=== PATIENT | male | born 1995 | race Caucasian/White ===

== ENCOUNTER 2024-05-18 02:37 | Outpatient (RCR) | payer BC, SELFPAY ==
[2024-05-04] MEDS: Normal Saline Flush 10 ML SYR IVP (08:45)
[2024-05-04 09:02] LABS: Abs Immature Grans 0.46 10^3/uL (0.0-0.06); Absolute Basophil Count 0.08 10^3/uL (0.0-0.2); Absolute Eosinophil Count 0.13 10^3/uL (0.0-0.7); Absolute Lymphocyte Count 2.59 10^3/uL (1.2-3.4); Absolute Monocyte Count 2.12 10^3/uL (0.1-0.8); Basophils % 0.3 %; Eosinophils % 0.5 %; HCT 42.8 % (40.0-50.0); HGB 13.5 g/dL (13.5-17.5); Immature Grans % 1.8 %; MCH 27.1 pg (27.0-33.0); MCHC 31.5 % (32.0-36.0); MCV 86 fL (80-95); Monocytes % 8.2 %; Neutrophils % 79.2 %; Platelet Count 376 10^3/uL (130-400); RBC 4.98 10^6/uL (4.36-5.78); RDW 13.7 % (11.8-14.1); RDW-SD 41.9 fL
[2024-05-04 09:04] LABS: Absolute Neutrophil Count 20.51 10^3/uL (1.2-6.7)
[2024-05-04 09:09] LABS: ESR 83 mm/hr (0-15)
[2024-05-04 09:33] LABS: Diff Comment Diff Reviewed; RBC Morphology Normal
[2024-05-04 10:39] LABS: ALT 33 U/L (16-63); AST 12 U/L (15-37); Albumin 2.6 g/dL (3.4-5.0); Alkaline Phosphatase 167 U/L (46-116); Anion Gap 8.1 mmol/L (3-11); BUN 12 mg/dL (7-18); Bilirubin, Total 1.45 mg/dL (0.2-1.0); CO2 27.9 mmol/L (21.0-32.0); CREATININE 1.1 mg/dL (0.70-1.30); Calcium 8.9 mg/dL (8.5-10.1); Chloride 99 mmol/L (98-107); Estimated GFR 93.77 (mL/min/1.73m2); Glucose 147 mg/dL (74-106); Potassium 4.2 mmol/L (3.5-5.1); Sodium 135 mmol/L (136-145); Total Protein 7.5 g/dL (6.4-8.2)
[2024-05-11] MEDS: Normal Saline Flush 10 ML SYR IVP (09:32)
[2024-05-11 10:01] LABS: Abs Immature Grans 0.05 10^3/uL (0.0-0.06); Absolute Basophil Count 0.04 10^3/uL (0.0-0.2); Absolute Eosinophil Count 0.15 10^3/uL (0.0-0.7); Absolute Lymphocyte Count 1.93 10^3/uL (1.2-3.4); Absolute Monocyte Count 0.09 10^3/uL (0.1-0.8); Absolute Neutrophil Count 3.06 10^3/uL (1.2-6.7); Basophils % 0.8 %; Eosinophils % 2.8 %; HCT 39.9 % (40.0-50.0); HGB 12.3 g/dL (13.5-17.5); Immature Grans % 0.9 %; Lymphocytes % 36.3 %; MCH 26.9 pg (27.0-33.0); MCHC 30.8 % (32.0-36.0); MCV 87 fL (80-95); MPV 8.9 fL (8.0-11.0); Monocytes % 1.7 %; Neutrophils % 57.5 %; Platelet Count 290 10^3/uL (130-400); RBC 4.58 10^6/uL (4.36-5.78); RDW 13.1 % (11.8-14.1); RDW-SD 41.1 fL; WBC 5.32 10^3/uL (4.4-10.8)
[2024-05-11 10:06] LABS: ESR 31 mm/hr (0-15)
[2024-05-11 10:34] LABS: ALT 37 U/L (16-63); AST 15 U/L (15-37); Albumin 2.9 g/dL (3.4-5.0); Alkaline Phosphatase 130 U/L (46-116); BUN 7 mg/dL (7-18); Bilirubin, Total 0.3 mg/dL (0.2-1.0); CREATININE 0.7 mg/dL (0.70-1.30); Calcium 8.6 mg/dL (8.5-10.1); Chloride 105 mmol/L (98-107); Estimated GFR 128.71 (mL/min/1.73m2); Glucose 90 mg/dL (74-106); Potassium 4.2 mmol/L (3.5-5.1); Sodium 140 mmol/L (136-145); TSH 0.78 uIU/mL (0.36-3.74); Total Protein 6.8 g/dL (6.4-8.2)
[2024-05-18] MEDS: Normal Saline Flush 10 ML SYR IVP (08:20)
[2024-05-18 08:35] LABS: Absolute Basophil Count 0.07 10^3/uL (0.0-0.2); Absolute Eosinophil Count 0.16 10^3/uL (0.0-0.7); Absolute Lymphocyte Count 1.68 10^3/uL (1.2-3.4); Absolute Monocyte Count 0.45 10^3/uL (0.1-0.8); Basophils % 2.5 %; Eosinophils % 5.8 %; HCT 41.4 % (40.0-50.0); HGB 13.1 g/dL (13.5-17.5); Lymphocytes % 60.6 %; MCH 27.3 pg (27.0-33.0); MCHC 31.6 % (32.0-36.0); MCV 86 fL (80-95); MPV 8.8 fL (8.0-11.0); Monocytes % 16.2 %; Neutrophils % 14.9 %; Platelet Count 309 10^3/uL (130-400); RDW 15.3 % (11.8-14.1); WBC 2.77 10^3/uL (4.4-10.8)
[2024-05-18 08:38] LABS: ESR 28 mm/hr (0-15)
[2024-05-18 08:49] LABS: Diff Comment Diff Reviewed
[2024-05-18 08:50] LABS: Stomatocytes 2+
[2024-05-18 08:52] LABS: Absolute Neutrophil Count 0.41 10^3/uL (1.2-6.7)
[2024-05-18 09:02] LABS: ALT 38 U/L (16-63); AST 23 U/L (15-37); Alkaline Phosphatase 132 U/L (46-116); Anion Gap 6.1 mmol/L (3-11); BUN 8 mg/dL (7-18); Bilirubin, Total 0.4 mg/dL (0.2-1.0); CO2 29.9 mmol/L (21.0-32.0); CREATININE 0.7 mg/dL (0.70-1.30); Calcium 8.8 mg/dL (8.5-10.1); Chloride 106 mmol/L (98-107); Estimated GFR 127.91 (mL/min/1.73m2); Glucose 115 mg/dL (74-106); Potassium 4.1 mmol/L (3.5-5.1); Sodium 142 mmol/L (136-145); Total Protein 6.9 g/dL (6.4-8.2)
== END 2024-05-30 23:59 | disposition home or self-care (01) ==
LOC: INF 02:37
PROVIDERS: Visit Provider Internal Medicine Hematology & Oncology
DX: R53.83 Other fatigue (principal); R59.9 Enlarged lymph nodes, unspecified
CPT/HCPCS: 36591; 80053; 85652; 84443; 85025

== ENCOUNTER 2024-06-29 01:20 | Outpatient (RCR) | payer BC, SELFPAY ==
[2024-06-01] MEDS: Normal Saline Flush 10 ML SYR IVP (08:35)
[2024-06-01 08:49] LABS: Abs Immature Grans 0.79 10^3/uL (0.0-0.06); HCT 42.2 % (40.0-50.0); HGB 13.6 g/dL (13.5-17.5); MCH 27.9 pg (27.0-33.0); MCHC 32.2 % (32.0-36.0); MCV 87 fL (80-95); MPV 9.2 fL (8.0-11.0); Platelet Count 276 10^3/uL (130-400); RBC 4.88 10^6/uL (4.36-5.78); RDW-SD 51.9 fL; WBC 11.04 10^3/uL (4.4-10.8)
[2024-06-01 08:54] LABS: ESR 22 mm/hr (0-15)
[2024-06-01 09:07] LABS: Absolute Eosinophil Count 0.11 10^3/uL (0.0-0.7); Absolute Lymphocyte Count 2.87 10^3/uL (1.2-3.4); Absolute Monocyte Count 0.99 10^3/uL (0.1-0.8); Absolute Neutrophil Count 6.62 10^3/uL (1.2-6.7); Bands % 4 %; Myelocytes % 4
[2024-06-01 09:08] LABS: Diff Comment Diff Reviewed; RBC Morphology Normal
[2024-06-01 09:17] LABS: ALT 34 U/L (16-63); AST 16 U/L (15-37); Albumin 3.3 g/dL (3.4-5.0); Alkaline Phosphatase 149 U/L (46-116); Anion Gap 8.9 mmol/L (3-11); BUN 8 mg/dL (7-18); Bilirubin, Total 0.2 mg/dL (0.2-1.0); CO2 30.1 mmol/L (21.0-32.0); CREATININE 0.7 mg/dL (0.70-1.30); Chloride 104 mmol/L (98-107); Estimated GFR 127.91 (mL/min/1.73m2); Glucose 103 mg/dL (74-106); Potassium 4.1 mmol/L (3.5-5.1); Sodium 143 mmol/L (136-145); TSH 1.15 uIU/mL (0.36-3.74)
[2024-06-15] MEDS: Normal Saline Flush 10 ML SYR IVP (08:28)
[2024-06-15 08:39] LABS: Abs Immature Grans 0.01 10^3/uL (0.0-0.06); Absolute Basophil Count 0.07 10^3/uL (0.0-0.2); Absolute Eosinophil Count 0.11 10^3/uL (0.0-0.7); Absolute Lymphocyte Count 1.61 10^3/uL (1.2-3.4); Absolute Monocyte Count 0.71 10^3/uL (0.1-0.8); Absolute Neutrophil Count 2.16 10^3/uL (1.2-6.7); Basophils % 1.5 %; Eosinophils % 2.4 %; HCT 42.1 % (40.0-50.0); HGB 13.3 g/dL (13.5-17.5); Immature Grans % 0.2 %; Lymphocytes % 34.5 %; MCH 27.7 pg (27.0-33.0); MCHC 31.6 % (32.0-36.0); MCV 88 fL (80-95); MPV 9.1 fL (8.0-11.0); Monocytes % 15.2 %; Neutrophils % 46.2 %; Platelet Count 303 10^3/uL (130-400); RDW 18.3 % (11.8-14.1); RDW-SD 57.1 fL; WBC 4.67 10^3/uL (4.4-10.8)
[2024-06-15 08:41] LABS: ESR 16 mm/hr (0-15)
[2024-06-15 09:06] LABS: ALT 37 U/L (16-63); AST 18 U/L (15-37); Albumin 3.3 g/dL (3.4-5.0); Alkaline Phosphatase 106 U/L (46-116); Anion Gap 6.1 mmol/L (3-11); BUN 9 mg/dL (7-18); Bilirubin, Total 0.3 mg/dL (0.2-1.0); CO2 29.9 mmol/L (21.0-32.0); CREATININE 0.8 mg/dL (0.70-1.30); Calcium 9.1 mg/dL (8.5-10.1); Chloride 106 mmol/L (98-107); Estimated GFR 122.86 (mL/min/1.73m2); Glucose 95 mg/dL (74-106); Potassium 4.1 mmol/L (3.5-5.1); Sodium 142 mmol/L (136-145); TSH 1.14 uIU/mL (0.36-3.74); Total Protein 6.7 g/dL (6.4-8.2)
[2024-06-29 08:36] LABS: Abs Immature Grans 0.02 10^3/uL (0.0-0.06); Absolute Basophil Count 0.11 10^3/uL (0.0-0.2); Absolute Eosinophil Count 0.15 10^3/uL (0.0-0.7); Absolute Lymphocyte Count 1.97 10^3/uL (1.2-3.4); Absolute Monocyte Count 0.74 10^3/uL (0.1-0.8); Absolute Neutrophil Count 3.02 10^3/uL (1.2-6.7); Basophils % 1.8 %; Eosinophils % 2.5 %; HCT 44.6 % (40.0-50.0); Immature Grans % 0.3 %; Lymphocytes % 32.8 %; MCH 27.9 pg (27.0-33.0); MCHC 31.4 % (32.0-36.0); MCV 89 fL (80-95); Monocytes % 12.3 %; Neutrophils % 50.3 %; Platelet Count 334 10^3/uL (130-400); RBC 5.02 10^6/uL (4.36-5.78); RDW 18.3 % (11.8-14.1); RDW-SD 58.4 fL; WBC 6.01 10^3/uL (4.4-10.8)
[2024-06-29 08:37] LABS: ESR 14 mm/hr (0-15)
[2024-06-29 09:01] LABS: ALT 25 U/L (16-63); AST 15 U/L (15-37); Albumin 3.3 g/dL (3.4-5.0); Alkaline Phosphatase 123 U/L (46-116); Anion Gap 6.8 mmol/L (3-11); BUN 11 mg/dL (7-18); Bilirubin, Total 0.2 mg/dL (0.2-1.0); CO2 29.2 mmol/L (21.0-32.0); CREATININE 0.9 mg/dL (0.70-1.30); Calcium 9.1 mg/dL (8.5-10.1); Chloride 106 mmol/L (98-107); Estimated GFR 118.57 (mL/min/1.73m2); Glucose 119 mg/dL (74-106); Potassium 4.3 mmol/L (3.5-5.1); Sodium 142 mmol/L (136-145); TSH 1.29 uIU/mL (0.36-3.74); Total Protein 6.8 g/dL (6.4-8.2)
[2024-06-29] MEDS: Normal Saline Flush 10 ML SYR IVP (09:14)
== END 2024-06-29 23:59 | disposition home or self-care (01) ==
LOC: INF 01:20
PROVIDERS: Visit Provider Internal Medicine Hematology & Oncology
DX: R53.83 Other fatigue (principal); R59.9 Enlarged lymph nodes, unspecified; Z45.2 Encounter for adjustment and management of vascular access device
CPT/HCPCS: 36591; 80053; 85652; 84443; 85025

== ENCOUNTER 2024-07-13 02:36 | Outpatient (RCR) | payer BC, SELFPAY ==
[2024-07-13 09:14] LABS: Abs Immature Grans 0.01 10^3/uL (0.0-0.06); Absolute Basophil Count 0.08 10^3/uL (0.0-0.2); Absolute Eosinophil Count 0.11 10^3/uL (0.0-0.7); Absolute Lymphocyte Count 1.88 10^3/uL (1.2-3.4); Absolute Monocyte Count 0.73 10^3/uL (0.1-0.8); Absolute Neutrophil Count 2.67 10^3/uL (1.2-6.7); Basophils % 1.5 %; HCT 44.8 % (40.0-50.0); HGB 14.8 g/dL (13.5-17.5); Immature Grans % 0.2 %; Lymphocytes % 34.3 %; MCH 28.4 pg (27.0-33.0); MCV 86 fL (80-95); Monocytes % 13.3 %; Neutrophils % 48.7 %; Platelet Count 335 10^3/uL (130-400); RBC 5.22 10^6/uL (4.36-5.78); RDW 18.2 % (11.8-14.1); RDW-SD 56.3 fL; WBC 5.48 10^3/uL (4.4-10.8)
[2024-07-13 09:19] LABS: ESR 20 mm/hr (0-15)
[2024-07-13 09:43] LABS: ALT 28 U/L (16-63); AST 13 U/L (15-37); Albumin 3.5 g/dL (3.4-5.0); Alkaline Phosphatase 112 U/L (46-116); Anion Gap 9.1 mmol/L (3-11); BUN 9 mg/dL (7-18); Bilirubin, Total 0.3 mg/dL (0.2-1.0); CO2 26.9 mmol/L (21.0-32.0); CREATININE 0.8 mg/dL (0.70-1.30); Chloride 105 mmol/L (98-107); Estimated GFR 122.86 (mL/min/1.73m2); Glucose 105 mg/dL (74-106); Potassium 4.2 mmol/L (3.5-5.1); Sodium 141 mmol/L (136-145); TSH 1.23 uIU/mL (0.36-3.74)
[2024-07-13] MEDS: Normal Saline Flush 10 ML SYR IVP (09:53)
== END 2024-07-30 23:59 | disposition home or self-care (01) ==
LOC: INF 02:36
PROVIDERS: Visit Provider Internal Medicine Hematology & Oncology
DX: R53.83 Other fatigue (principal); R59.9 Enlarged lymph nodes, unspecified; Z45.2 Encounter for adjustment and management of vascular access device
CPT/HCPCS: 36415; 36591; 80053; 85652; 84443; 85025

== ENCOUNTER 2024-07-27 01:03 | Outpatient (RCR) | payer BC, SELFPAY ==
[2024-07-27] MEDS: Normal Saline Flush 10 ML SYR IVP (08:37)
[2024-07-27 08:56] LABS: Abs Immature Grans 0.02 10^3/uL (0.0-0.06); Absolute Basophil Count 0.08 10^3/uL (0.0-0.2); Absolute Eosinophil Count 0.11 10^3/uL (0.0-0.7); Absolute Lymphocyte Count 1.42 10^3/uL (1.2-3.4); Absolute Monocyte Count 0.72 10^3/uL (0.1-0.8); Absolute Neutrophil Count 2.75 10^3/uL (1.2-6.7); Basophils % 1.6 %; Eosinophils % 2.2 %; HCT 44.8 % (40.0-50.0); HGB 14.7 g/dL (13.5-17.5); Immature Grans % 0.4 %; Lymphocytes % 27.8 %; MCH 28.5 pg (27.0-33.0); MCHC 32.8 % (32.0-36.0); MCV 87 fL (80-95); MPV 9.3 fL (8.0-11.0); Monocytes % 14.1 %; Neutrophils % 53.9 %; Platelet Count 301 10^3/uL (130-400); RBC 5.16 10^6/uL (4.36-5.78); RDW 17.9 % (11.8-14.1); RDW-SD 56.3 fL
[2024-07-27 09:01] LABS: ESR 14 mm/hr (0-15)
[2024-07-27 09:16] LABS: ALT 26 U/L (16-63); AST 20 U/L (15-37); Albumin 3.8 g/dL (3.4-5.0); Alkaline Phosphatase 88 U/L (46-116); Anion Gap 11.3 mmol/L (3-11); BUN 12 mg/dL (7-18); Bilirubin, Total 0.5 mg/dL (0.2-1.0); CO2 25.7 mmol/L (21.0-32.0); Chloride 103 mmol/L (98-107); Estimated GFR 104.48 (mL/min/1.73m2); Glucose 80 mg/dL (74-106); Potassium 3.9 mmol/L (3.5-5.1); Sodium 140 mmol/L (136-145); Total Protein 7.3 g/dL (6.4-8.2)
== END 2024-07-30 23:59 | disposition home or self-care (01) ==
LOC: INF 01:03
PROVIDERS: Visit Provider Internal Medicine Hematology & Oncology
DX: R53.83 Other fatigue (principal); R59.9 Enlarged lymph nodes, unspecified
CPT/HCPCS: 36591; 80053; 85652; 84443; 85025

== ENCOUNTER 2024-08-24 00:41 | Outpatient (RCR) | payer BC, SELFPAY ==
[2024-08-10] MEDS: Normal Saline Flush 10 ML SYR IVP (08:55)
[2024-08-10 09:22] LABS: Abs Immature Grans 0.01 10^3/uL (0.0-0.06); Absolute Basophil Count 0.07 10^3/uL (0.0-0.2); Absolute Eosinophil Count 0.12 10^3/uL (0.0-0.7); Absolute Lymphocyte Count 1.79 10^3/uL (1.2-3.4); Absolute Monocyte Count 1.09 10^3/uL (0.1-0.8); Absolute Neutrophil Count 2.91 10^3/uL (1.2-6.7); Basophils % 1.2 %; HCT 43.9 % (40.0-50.0); HGB 14.2 g/dL (13.5-17.5); Immature Grans % 0.2 %; Lymphocytes % 29.9 %; MCHC 32.3 % (32.0-36.0); MCV 90 fL (80-95); MPV 9.6 fL (8.0-11.0); Monocytes % 18.2 %; Neutrophils % 48.5 %; Platelet Count 255 10^3/uL (130-400); RDW-SD 56.2 fL; WBC 5.99 10^3/uL (4.4-10.8)
[2024-08-10 09:30] LABS: ESR 12 mm/hr (0-15)
[2024-08-10 09:58] LABS: ALT 51 U/L (16-63); AST 19 U/L (15-37); Albumin 3.3 g/dL (3.4-5.0); Alkaline Phosphatase 108 U/L (46-116); Anion Gap 8.4 mmol/L (3-11); BUN 10 mg/dL (7-18); Bilirubin, Total 0.2 mg/dL (0.2-1.0); CO2 28.6 mmol/L (21.0-32.0); CREATININE 0.8 mg/dL (0.70-1.30); Calcium 8.7 mg/dL (8.5-10.1); Chloride 106 mmol/L (98-107); Estimated GFR 122.86 (mL/min/1.73m2); Glucose 107 mg/dL (74-106); Sodium 143 mmol/L (136-145); TSH 1.63 uIU/mL (0.36-3.74); Total Protein 6.6 g/dL (6.4-8.2)
[2024-08-24] MEDS: Normal Saline Flush 10 ML SYR IVP (08:28)
[2024-08-24 08:42] LABS: Abs Immature Grans 0.02 10^3/uL (0.0-0.06); Absolute Basophil Count 0.06 10^3/uL (0.0-0.2); Absolute Eosinophil Count 0.16 10^3/uL (0.0-0.7); Absolute Lymphocyte Count 2.06 10^3/uL (1.2-3.4); Absolute Monocyte Count 0.73 10^3/uL (0.1-0.8); Absolute Neutrophil Count 2.59 10^3/uL (1.2-6.7); Basophils % 1.1 %; Eosinophils % 2.8 %; HGB 14.3 g/dL (13.5-17.5); Immature Grans % 0.4 %; Lymphocytes % 36.7 %; MCH 29.8 pg (27.0-33.0); MCHC 33.3 % (32.0-36.0); MCV 90 fL (80-95); Platelet Count 308 10^3/uL (130-400); RDW 15.9 % (11.8-14.1); RDW-SD 52.1 fL; WBC 5.62 10^3/uL (4.4-10.8)
[2024-08-24 08:47] LABS: ESR 16 mm/hr (0-15)
[2024-08-24 09:13] LABS: ALT 35 U/L (16-63); AST 15 U/L (15-37); Albumin 3.2 g/dL (3.4-5.0); Alkaline Phosphatase 107 U/L (46-116); Anion Gap 7.8 mmol/L (3-11); BUN 8 mg/dL (7-18); Bilirubin, Total 0.2 mg/dL (0.2-1.0); CO2 29.2 mmol/L (21.0-32.0); CREATININE 0.7 mg/dL (0.70-1.30); Calcium 8.8 mg/dL (8.5-10.1); Chloride 105 mmol/L (98-107); Estimated GFR 127.91 (mL/min/1.73m2); Glucose 111 mg/dL (74-106); Sodium 142 mmol/L (136-145); TSH 1.03 uIU/mL (0.36-3.74); Total Protein 6.7 g/dL (6.4-8.2)
== END 2024-08-29 23:59 | disposition home or self-care (01) ==
LOC: INF 00:41
PROVIDERS: Visit Provider Internal Medicine Hematology & Oncology
DX: R59.9 Enlarged lymph nodes, unspecified (principal); R53.83 Other fatigue; Z45.2 Encounter for adjustment and management of vascular access device
CPT/HCPCS: 36591; 80053; 85652; 84443; 85025

== ENCOUNTER 2024-09-21 02:17 | Outpatient (RCR) | payer BC, SELFPAY ==
[2024-09-07] MEDS: Normal Saline Flush 10 ML SYR IVP (08:30)
[2024-09-07 09:00] LABS: Abs Immature Grans 0.02 10^3/uL (0.0-0.06); HCT 43.7 % (40.0-50.0); HGB 14.5 g/dL (13.5-17.5); Immature Grans % 0.4 %; MCH 29.2 pg (27.0-33.0); MCHC 33.2 % (32.0-36.0); MCV 88 fL (80-95); MPV 9.4 fL (8.0-11.0); Platelet Count 311 10^3/uL (130-400); RBC 4.96 10^6/uL (4.36-5.78); RDW 15.6 % (11.8-14.1); RDW-SD 50.3 fL; WBC 5.27 10^3/uL (4.4-10.8)
[2024-09-07 09:02] LABS: ESR 17 mm/hr (0-15)
[2024-09-07 09:27] LABS: ALT 36 U/L (16-63); AST 18 U/L (15-37); Albumin 3.5 g/dL (3.4-5.0); Alkaline Phosphatase 99 U/L (46-116); Anion Gap 5.3 mmol/L (3-11); BUN 11 mg/dL (7-18); Bilirubin, Total 0.4 mg/dL (0.2-1.0); CO2 29.7 mmol/L (21.0-32.0); Calcium 8.7 mg/dL (8.5-10.1); Chloride 103 mmol/L (98-107); Estimated GFR 127.91 (mL/min/1.73m2); Glucose 92 mg/dL (74-106); Potassium 4.1 mmol/L (3.5-5.1); Sodium 138 mmol/L (136-145); TSH 0.57 uIU/mL (0.36-3.74); Total Protein 7.0 g/dL (6.4-8.2)
[2024-09-21 09:17] LABS: Abs Immature Grans 0.01 10^3/uL (0.0-0.06); HCT 43.1 % (40.0-50.0); HGB 14.4 g/dL (13.5-17.5); Immature Grans % 0.2 %; MCH 29.8 pg (27.0-33.0); MCHC 33.4 % (32.0-36.0); MCV 89 fL (80-95); MPV 9.7 fL (8.0-11.0); Platelet Count 293 10^3/uL (130-400); RBC 4.84 10^6/uL (4.36-5.78); RDW 16.3 % (11.8-14.1); RDW-SD 53.1 fL; WBC 4.88 10^3/uL (4.4-10.8)
[2024-09-21 09:27] LABS: ESR 14 mm/hr (0-15)
[2024-09-21 09:49] LABS: ALT 27 U/L (16-63); AST 17 U/L (15-37); Albumin 3.8 g/dL (3.4-5.0); Alkaline Phosphatase 86 U/L (46-116); Anion Gap 8.6 mmol/L (3-11); BUN 15 mg/dL (7-18); Bilirubin, Total 0.3 mg/dL (0.2-1.0); CO2 29.4 mmol/L (21.0-32.0); Calcium 9.1 mg/dL (8.5-10.1); Chloride 104 mmol/L (98-107); Estimated GFR 127.91 (mL/min/1.73m2); Glucose 92 mg/dL (74-106); Potassium 4.3 mmol/L (3.5-5.1); Sodium 142 mmol/L (136-145); TSH 0.67 uIU/mL (0.36-3.74); Total Protein 7.0 g/dL (6.4-8.2)
[2024-09-21] MEDS: Normal Saline Flush 10 ML SYR IVP (09:50)
== END 2024-09-29 23:59 | disposition home or self-care (01) ==
LOC: INF 02:17
PROVIDERS: Visit Provider Internal Medicine Hematology & Oncology
DX: R59.9 Enlarged lymph nodes, unspecified (principal); R53.83 Other fatigue
CPT/HCPCS: 36591; 80053; 85652; 84443; 85025

== ENCOUNTER 2024-10-19 02:38 | Outpatient (RCR) | payer BC, SELFPAY ==
[2024-10-05] MEDS: Normal Saline Flush 10 ML SYR IVP (08:41)
[2024-10-05 09:10] LABS: Abs Immature Grans 0.01 10^3/uL (0.0-0.06); HCT 43.3 % (40.0-50.0); HGB 14.0 g/dL (13.5-17.5); Immature Grans % 0.2 %; MCH 29.5 pg (27.0-33.0); MCHC 32.3 % (32.0-36.0); MCV 91 fL (80-95); MPV 10.6 fL (8.0-11.0); Platelet Count 276 10^3/uL (130-400); RBC 4.75 10^6/uL (4.36-5.78); RDW 16.8 % (11.8-14.1); RDW-SD 56.1 fL; WBC 4.72 10^3/uL (4.4-10.8)
[2024-10-05 09:13] LABS: ESR 15 mm/hr (0-15)
[2024-10-05 09:39] LABS: ALT 35 U/L (16-63); AST 19 U/L (15-37); Albumin 3.8 g/dL (3.4-5.0); Alkaline Phosphatase 94 U/L (46-116); Anion Gap 7.3 mmol/L (3-11); BUN 11 mg/dL (7-18); Bilirubin, Total 0.3 mg/dL (0.2-1.0); CO2 29.7 mmol/L (21.0-32.0); Calcium 9.2 mg/dL (8.5-10.1); Chloride 105 mmol/L (98-107); Estimated GFR 104.48 (mL/min/1.73m2); Glucose 107 mg/dL (74-106); Potassium 4.1 mmol/L (3.5-5.1); Sodium 142 mmol/L (136-145); TSH 0.62 uIU/mL (0.36-3.74); Total Protein 7.1 g/dL (6.4-8.2)
== END 2024-10-30 23:59 | disposition home or self-care (01) ==
LOC: INF 02:38
PROVIDERS: Visit Provider Internal Medicine Hematology & Oncology
DX: R59.9 Enlarged lymph nodes, unspecified (principal); R53.83 Other fatigue
CPT/HCPCS: 36591; 80053; 85652; 84443; 85025